=== PATIENT | male | born 1960 | race Caucasian/White ===

== ENCOUNTER → 2020-10-22 15:25 | Outpatient (BNVA) | payer OTHER, SELFPAY | PROVIDERS: Visit Provider Internal Medicine Endocrinology, Diabetes & Metabolism | DX: E11.65 Type 2 diabetes mellitus with hyperglycemia (principal); E11.42 Type 2 diabetes mellitus with diabetic polyneuropathy; E11.21 Type 2 diabetes mellitus with diabetic nephropathy; E66.9 Obesity, unspecified; E55.9 Vitamin D deficiency, unspecified; E78.5 Hyperlipidemia, unspecified; I10 Essential (primary) hypertension | CPT/HCPCS: 82947 ==

== ENCOUNTER 2020-12-06 12:25 | Outpatient (REF) | payer OTHER, SELFPAY | END 2020-12-06 12:26 | disposition home or self-care (01) | LOC: HO.LAB 12:25 | PROVIDERS: Visit Provider Internal Medicine | DX: Z20.822 Contact with and (suspected) exposure to COVID-19 (principal) | CPT/HCPCS: 36415; C9803; U0003 ==

== ENCOUNTER 2021-05-29 10:39 | Outpatient (REF) | payer OTHER, SELFPAY ==
[2021-05-29 12:33] LABS: Alanine Aminotransferase 25 U/L (0-40); Albumin Level 4.6 g/dL (3.5-5.0); Alkaline Phosphatase 106 U/L (39-117); Anion Gap 12 (12-20); Aspartate Amino Transferase 23 U/L (5-37); Bilirubin Total 0.7 mg/dL (0.0-1.0); Blood Urea Nitrogen 20 mg/dL (9-16); Calcium 9.7 mg/dL (8.4-10.2); Carbon Dioxide 24 mmol/L (22-29); Chloride 105 mmol/L (96-108); Cholesterol 114 mg/dL; Estimated Glomerular Filt Rate 53; Glucose Random 105 mg/dL (60-115); HDL Cholesterol 34 mg/dL; LDL Cholesterol Calculated 55 mg/dl; Potassium 4.4 mmol/L (3.3-5.1); Sodium 137 mmol/L (135-145); Total Protein 8.1 g/dL (6.5-8.0); Triglycerides 126 mg/dL
[2021-05-29 12:53] LABS: Vitamin B12 464 pg/mL (200-900)
[2021-05-29 15:38] LABS: Creatinine Urine 77.33 mg/dL; Microalbum/Creatinine Ratio Ur 51.7 ug/mg cr
== END 2021-05-29 10:40 | disposition home or self-care (01) ==
LOC: HO.LAB 10:39
PROVIDERS: PCP Internal Medicine; Visit Provider Internal Medicine Endocrinology, Diabetes & Metabolism
DX: E11.65 Type 2 diabetes mellitus with hyperglycemia (principal); E11.42 Type 2 diabetes mellitus with diabetic polyneuropathy; E11.21 Type 2 diabetes mellitus with diabetic nephropathy; E66.9 Obesity, unspecified; Z68.34 Body mass index [BMI] 34.0-34.9, adult; E78.5 Hyperlipidemia, unspecified; E55.9 Vitamin D deficiency, unspecified; I10 Essential (primary) hypertension; Z79.84 Long term (current) use of oral hypoglycemic drugs; Z71.3 Dietary counseling and surveillance
CPT/HCPCS: 36415; 80053; 80061; 82043; 82607; 82947

== ENCOUNTER 2021-08-08 15:09 | Outpatient (REF) | payer OTHER, SELFPAY ==
[2021-08-14 14:26] LABS: Vitamin D 25-OH, D2 <4 ng/mL; Vitamin D 25-OH, D3 29 ng/mL; Vitamin D 25-OH, Total 29 ng/mL (30-100)
== END 2021-08-08 15:10 | disposition home or self-care (01) ==
LOC: HO.LAB 15:09
PROVIDERS: Visit Provider Nurse Practitioner Gerontology
DX: E55.9 Vitamin D deficiency, unspecified (principal)
CPT/HCPCS: 36415; 82306

== ENCOUNTER → 2021-10-17 13:54 | Outpatient (BNVA) | payer OTHER, SELFPAY | PROVIDERS: Visit Provider Nurse Practitioner Gerontology | DX: E11.21 Type 2 diabetes mellitus with diabetic nephropathy (principal); E55.9 Vitamin D deficiency, unspecified; E78.5 Hyperlipidemia, unspecified; E66.9 Obesity, unspecified; E53.8 Deficiency of other specified B group vitamins; I10 Essential (primary) hypertension; Z68.33 Body mass index [BMI] 33.0-33.9, adult | CPT/HCPCS: 82947; 83036 ==

== ENCOUNTER 2023-02-11 06:35 | Emergency (ER) | payer OTHER, SELFPAY ==
--- NOTE | ~2023-02-11 | XR_ITS ---
EXAMINATION: XR CHEST CLINICAL INFORMATION: Cough COMPARISON: 03/30/2017 TECHNIQUE: Frontal view of the chest was obtained. FINDINGS: Lungs are well-inflated and clear. Trachea is midline in position. No interstitial disease, consolidation or mass. No pleural effusion or pneumothorax. Cardiac silhouette and pulmonary vessels are normal in size. The mediastinum and michaelle have normal contour. There is multilevel osteophyte and/or enthesophyte formation of the visualized spine. XR/XR chest 1V IMPRESSION: No acute cardiopulmonary abnormality. No evidence of pneumonia.
[2023-02-11 07:02] VITALS: BP 136/65; PULSE 94; RESP 20; TEMP 36.9; O2SAT 98; BMI 32.4
--- NOTE | 2023-02-11 07:04 | ECG_ITS ---
Test Reason : CHEST PAIN Blood Pressure : / mmHG Vent. Rate : 093 BPM Atrial Rate : 093 BPM P-R Int : 182 ms QRS Dur : 076 ms QT Int : 326 ms P-R-T Axes : 051 -20 014 degrees QTc Int : 405 ms Normal sinus rhythm Possible Inferior infarct , age undetermined Abnormal ECG When compared with ECG of 17-SEP-2011 08:08, No significant change was found Referred By: Generic ED Physician Electronically Signed By:ANGEL HUNT MD
[2023-02-11 07:36] VITALS: BP 136/74; PULSE 97; RESP 26; O2SAT 95
--- NOTE | 2023-02-11 07:40 | ED_ITS ---
HPI - URI/Sore Throat General Chief Complaint: Upper Respiratory Symptoms Stated Complaint: SoB, cough with cp Time Seen by Provider: 02/11/23 07:35 Source: patient and family Mode of arrival: ambulatory History of Present Illness HPI Narrative: This is 62 years old male presented to the emergency department complaining of cough congestion visited the PCP due tells me that he was placed on a course of azithromycin was given also albuterol. He continued to cough MD elicited complaint: cough Pertinent past history: other (Diabetes) Onset (ago): day(s) (7) Consistency: constant Relieving factors: nothing Related Data Home Medications Medication Instructions Recorded Confirmed aspirin 81 mg tablet,delayed 81 mg PO DAILY 10/22/20 10/17/21 release hydroxyzine HCl 25 mg tablet 25 mg PO Q8H PRN anxiety 10/22/20 10/17/21 omeprazole 20 mg capsule,delayed 20 mg PO DAILY 10/22/20 10/17/21 release ticagrelor 90 mg tablet 90 mg PO BID 10/22/20 10/17/21 metoprolol succinate 25 mg 25 mg PO DAILY 05/29/21 10/17/21 tablet,extended release 24 hr nitroglycerin 0.4 mg sublingual 0.4 mg sublingual Q5M PRN 10/17/21 10/17/21 tablet Previous Rx's Medication Instructions Recorded lancets 28 gauge (FreeStyle #150 ea 08/30/20 Lancets) valsartan 80 mg tablet 80 mg PO DAILY 30 days #30 caps 01/15/21 blood sugar diagnostic (FreeStyle 1 strip miscellaneous QID 30 days 02/03/21 Lite Strips) #150 caps metformin 500 mg tablet,extended 1,000 mg PO BID #120 caps 10/16/21 release 24 hr cyanocobalamin (vitamin B-12) 100 See Rx Instructions PO DAILY 90 10/17/21 mcg tablet days #24 tabs atorvastatin 40 mg tablet 40 mg PO DAILY #30 tabs 01/14/22 dulaglutide 1.5 mg/0.5 mL 1.5 mg (0.5 mL) subcut QWEEK 30 01/15/22 subcutaneous pen injector days #2.5 mL (Trulicity) cholecalciferol (vitamin D3) 50 50 mcg PO DAILY #30 caps 03/24/22 mcg (2,000 unit) capsule (Vitamin D3) empagliflozin 25 mg tablet 25 mg PO DAILY 30 days #30 tabs 07/21/22 (Jardiance) pioglitazone 30 mg tablet 30 mg PO DAILY #30 caps 07/21/22 doxycycline monohydrate 100 mg 100 mg PO BID #14 caps 02/11/23 capsule (Monodox) robitussin ac See Rx Instructions .Route 02/11/23 .COMPLEX #200 mL Allergies Allergy/AdvReac Type Severity Reaction Status Date / Time No Known Allergies Allergy Unverified 10/17/21 14:25 Review of Systems Constitutional: Constitutional: Reports no additional constitutional complaints Respiratory: Respiratory: Reports cough Integumentary/Breasts: Skin/Breast: Reports system reviewed and no additional complaints, except as docu PMFSH Past Medical History Medical History B12 deficiency Diabetic nephropathy associated with type 2 diabetes mellitus Diabetic polyneuropathy associated with type 2 diabetes mellitus Dyslipidemia Hypertension Obesity (BMI 30-39.9) Vitamin D deficiency Surgical History Hx of cholecystectomy Hx of colonoscopy Hx of heart artery stent Hx of hemorrhoidectomy Family History Family History Father No problems noted. Mother Diabetes mellitus Social History Social History Household Members: Spouse Alcohol intake: never Patient Tobacco Use Status: Never used Tobacco Physical Exam Vital Signs: Vital Signs: Last Vital Signs Temp 97.5 F 02/11/23 09:53 Pulse 83 02/11/23 09:53 Resp 19 02/11/23 09:53 BP 119/64 02/11/23 09:53 Pulse Ox 95 02/11/23 09:53 O2 Del Method Room Air 02/11/23 09:53 BMI result Body Mass Index 32.4 Const: General: cooperative Nutritional Appearance: well nourished Orientation/consciousness: oriented to person and patient oriented x3 HEENT: Head: Yes normal to inspection General nose exam: Normal external nose present Face and sinus: Yes normal facial exam Neck: Neck: Yes normal visual inspection and Yes full ROM Chest: Chest palpation & inspection: normal inspection of the chest Resp: Effort & Inspection: normal respiratory effort Auscultation: rhonchi Cardio: Jugular venous distension: no JVD Rate: regular rate Rhythm: regular rhythm GI: Inspection: Yes normal to inspection Palpation (GI): Soft to palpation, not firm, nontender, no guarding and not rigid Percussion: Yes normal to percussion Skin: General skin exam: no rashes or lesions noted and elasticity normal Rashes: no rashes Neuro: General: oriented to person and patient oriented x3 Cranial nerves: Yes CN's II-XII intact bilaterally Course Reevaluation(s) Reevaluation #1: The patient is oxygenating well his chest x-ray is normal he is afebrile he can be discharged home, I will try to see doxycicline and Robitussin ALLI Time: 10:22 Medical Decision Making Medical Decision Making [facility] Narrative: Patient presented with cough congestion of will going to get a chest x-ray labs and reassess Differential Diagnosis Differential Diagnoses: The differential diagnosis associated with the presentation includes Pneumonia/bronchitis Admission/Observation Consideration of admission/observation: Escalation of care including admission/observation considered Lab Data [facility] Lab Attestation statement: I reviewed the patient's lab results. 02/11/23 07:24 02/11/23 07:24 Labs: Lab Results 02/11/23 02/11/23 02/11/23 Range/Units 07:20 07:24 07:24 WBC 11.4 H (4.8-10.8) X10*3/uL RBC 4.70 (4.60-5.80) X10*6/uL Hgb 13.9 L (14.0-18.0) g/dl Hct 43.9 (42.0-52.0) % MCV 93.4 (80.0-98.0) fL MCH 29.6 (27.0-33.0) pg MCHC 31.7 (31.0-36.0) g/dl RDW 13.2 (11.0-16.0) % Plt Count 233 (160-400) X10*3/uL MPV 10.5 (9.4-12.4) fL Absolute Nucleated RBC 0.000 (0.0-0.012) X10*3/uL Nucleated RBC % (auto) 0.0 (0.0-0.2) /100WBC Sodium 139 (135-145) mmol/L Potassium 4.2 (3.3-5.1) mmol/L Chloride 105 (96-108) mmol/L Carbon Dioxide 23 (22-29) mmol/L Anion Gap 15 (12-20) BUN 17 H (9-16) mg/dL Creatinine 0.97 (0.5-1.4) mg/dL Estim Creat Clear Calc 84.5 Estimated GFR > 60 Random Glucose 134 H (60-115) mg/dL Calcium 9.7 (8.4-10.2) mg/dL Influenza Type A (PCR) NEGATIVE (Negative) Influenza Type B (PCR) NEGATIVE (Negative) RSV RNA Qual (PCR) NEGATIVE (Negative) SARS-CoV-2 RNA (RT-PCR) NEGATIVE (Negative) 02/11/23 Range/Units 08:15 WBC (4.8-10.8) X10*3/uL RBC (4.60-5.80) X10*6/uL Hgb (14.0-18.0) g/dl Hct (42.0-52.0) % MCV (80.0-98.0) fL MCH (27.0-33.0) pg MCHC (31.0-36.0) g/dl RDW (11.0-16.0) % Plt Count (160-400) X10*3/uL MPV (9.4-12.4) fL Absolute Nucleated RBC (0.0-0.012) X10*3/uL Nucleated RBC % (auto) (0.0-0.2) /100WBC Sodium (135-145) mmol/L Potassium (3.3-5.1) mmol/L Chloride (96-108) mmol/L Carbon Dioxide (22-29) mmol/L Anion Gap (12-20) BUN (9-16) mg/dL Creatinine (0.5-1.4) mg/dL Estim Creat Clear Calc Estimated GFR Random Glucose (60-115) mg/dL Calcium (8.4-10.2) mg/dL Influenza Type A (PCR) NEGATIVE (Negative) Influenza Type B (PCR) NEGATIVE (Negative) RSV RNA Qual (PCR) NEGATIVE (Negative) SARS-CoV-2 RNA (RT-PCR) NEGATIVE (Negative) Independent Interpretation I performed an independent interpretation of an: Plain X-Ray Radiology Impression Discussion of test interpretation with radiology: I have reviewed the radiologist's reading. Radiologist Impression: COMPARISON: 03/30/2017 TECHNIQUE: Frontal view of the chest was obtained. FINDINGS: Lungs are well-inflated and clear. Trachea is midline in position. No interstitial disease, consolidation or mass. No pleural effusion or pneumothorax.? Cardiac silhouette and pulmonary vessels are normal in size. The mediastinum and michaelle have normal contour. There is multilevel osteophyte and/or enthesophyte formation of the visualized spine. XR/XR chest 1V IMPRESSION: No acute cardiopulmonary abnormality. No evidence of pneumonia. ? Dictated By: Syed Augustine MD Signed By: <Electronically maycol Independent Historian Clinical information obtained from an independent historian. History obtained from or confirmed by: Spouse Discharge Plan Discharge Clinical Impression: Bronchitis Patient Disposition: Home, Self-Care Instructions: Chronic Bronchitis (DC) Prescriptions: New doxycycline monohydrate [Monodox] 100 mg capsule 100 mg PO BID Qty: 14 0RF robitussin ac See Rx Instructions .ROUTE .COMPLEX Qty: 200 0RF Rx Instructions: 5 ml QID prn cough No Action (DME) lancets [FreeStyle Lancets] 28 gauge misc See Rx Instructions .MEDSUPPLY Qty: 150 6RF Rx Instructions: 5 times a day valsartan 80 mg tablet 80 mg PO DAILY 30 Days Qty: 30 2RF blood sugar diagnostic [FreeStyle Lite Strips] Strip 1 strip miscellaneous QID 30 Days Qty: 150 11RF metformin 500 mg tablet extended release 24 hr 1,000 mg PO BID Qty: 120 4RF atorvastatin 40 mg tablet 40 mg PO DAILY Qty: 30 4RF Trulicity 1.5 mg/0.5 mL pen injector 1.5 mg subcut QWEEK 30 Days Qty: 2.5 4RF cholecalciferol (vitamin D3) [Vitamin D3] 50 mcg (2,000 unit) capsule 50 mcg PO DAILY Qty: 30 6RF pioglitazone 30 mg tablet 30 mg PO DAILY Qty: 30 3RF Jardiance 25 mg tablet 25 mg PO DAILY 30 Days Qty: 30 3RF aspirin 81 mg tablet,delayed release (DR/EC) 81 mg PO DAILY omeprazole 20 mg capsule,delayed release(DR/EC) 20 mg PO DAILY hydroxyzine HCl 25 mg tablet 25 mg PO Q8H PRN (Reason: anxiety) Brilinta 90 mg tablet 90 mg PO BID metoprolol succinate 25 mg tablet extended release 24 hr 25 mg PO DAILY nitroglycerin 0.4 mg tablet, sublingual 0.4 mg sublingual Q5M PRN Rx Instructions: do not exceed 3 doses per episode cyanocobalamin (vitamin B-12) 100 mcg tablet See Rx Instructions PO DAILY 90 Days Qty: 24 3RF Rx Instructions: 1 tab Wednesday and Wednesday PO daily; Referrals: Luiz Wright MD [Physician] - 3 days Stand Alone Forms: Work/School Release Interventions: ED Discharge Assessment Last Done: 02/11/23 10:34 Discharge Date/Time: 02/11/23 10:34
[2023-02-11 07:46] LABS: Anion Gap 15 (12-20); Blood Urea Nitrogen 17 mg/dL (9-16); Calcium 9.7 mg/dL (8.4-10.2); Carbon Dioxide 23 mmol/L (22-29); Chloride 105 mmol/L (96-108); Creatinine Clr Calc Pharmacy 84.5; Estimated Glomerular Filt Rate > 60; Glucose Random 134 mg/dL (60-115); Potassium 4.2 mmol/L (3.3-5.1); Sodium 139 mmol/L (135-145)
[2023-02-11 07:49] LABS: Hematocrit 43.9 % (42.0-52.0); Hemoglobin 13.9 g/dl (14.0-18.0); Mean Corpuscular HGB Conc 31.7 g/dl (31.0-36.0); Mean Corpuscular Hemoglobin 29.6 pg (27.0-33.0); Mean Corpuscular Volume 93.4 fL (80.0-98.0); Mean Platelet Volume 10.5 fL (9.4-12.4); Platelet Count 233 X10*3/uL (160-400); Red Cell Distribution Width 13.2 % (11.0-16.0); White Blood Count 11.4 X10*3/uL (4.8-10.8)
[2023-02-11 08:09] LABS: Influenza A PCR NEGATIVE (Negative); Influenza B PCR NEGATIVE (Negative); Resp Syncy Virus RNA Qual PCR NEGATIVE (Negative); SARS COV2 PCR INHOUSE NEGATIVE (Negative)
[2023-02-11 08:29] VITALS: BP 113/59; PULSE 86; RESP 20; O2SAT 96
--- NOTE | 2023-02-11 08:39 | PC.NURSE ---
Pt found sitting on side of bed with airway open and patent, no difficulty/labored breathing, no obvious signs of distress. Interpretor at bedside due to dominican speaking only. Lung sounds clr and equal bilat. Heart sounds noraml. Bowel sounds present all brown. Skin normal for ethnicity, warm, and dry. Pt has persistent, non-productive cough, which pt reports he has had for the last 2.5 weeks and he feels that it is getting worse. Pt reports that his chest hurts when he coughs 6/10 pain. No edema noted. Pt aware of plan of care.
[2023-02-11 09:06] LABS: Influenza A PCR NEGATIVE (Negative); Influenza B PCR NEGATIVE (Negative); Resp Syncy Virus RNA Qual PCR NEGATIVE (Negative); SARS COV2 PCR INHOUSE NEGATIVE (Negative)
[2023-02-11 09:53] VITALS: BP 119/64; PULSE 83; RESP 19; TEMP 36.4; O2SAT 95
== END 2023-02-11 10:34 | disposition home or self-care (01) ==
PROVIDERS: Emergency Provider Emergency Medicine
DX: J40 Bronchitis, not specified as acute or chronic (principal); R07.89 Other chest pain; R06.02 Shortness of breath; Z20.822 Contact with and (suspected) exposure to COVID-19; Z20.828 Contact with and (suspected) exposure to other viral communicable diseases; Z79.899 Other long term (current) drug therapy
CPT/HCPCS: 0241U; 36415; 71045; 80048; 85027; 93005; 99283; 99284

== ENCOUNTER → 2023-03-02 10:28 | Outpatient (BNVA) | payer OTHER, SELFPAY | PROVIDERS: PCP Internal Medicine; Visit Provider Hospitalist | DX: G47.33 Obstructive sleep apnea (adult) (pediatric) (principal); R05.9 Cough, unspecified | CPT/HCPCS: 99202 ==

== ENCOUNTER → 2023-04-21 11:00 | Outpatient (REF) | payer OTHER, SELFPAY | LOC: HO.SL 11:00 | PROVIDERS: Visit Provider Hospitalist | DX: G47.33 Obstructive sleep apnea (adult) (pediatric) (principal) | CPT/HCPCS: 95806 ==

== ENCOUNTER → 2023-05-03 09:34 | Outpatient (BNVA) | payer OTHER, SELFPAY | PROVIDERS: PCP Internal Medicine; Visit Provider Hospitalist | DX: G47.33 Obstructive sleep apnea (adult) (pediatric) (principal); R05.9 Cough, unspecified; Z23 Encounter for immunization | CPT/HCPCS: 90471; 90677 ==